=== PATIENT | female | born 1985 | race Caucasian/White ===

== ENCOUNTER 2022-09-22 15:50 | Emergency (ER) | payer OTHER ==
[2022-09-22 16:26] LABS: BASOPHILS % (AUTO) 1 % (0-10); EOSINOPHILS # (AUTO) 0.1 10^3/uL (0.0-0.3); EOSINOPHILS % (AUTO) 2 % (0-10); HEMATOCRIT 36 % (35-52); HEMOGLOBIN 12.4 g/dL (11.5-16.0); LYMPHOCYTES # (AUTO) 2.9 10^3/uL (1.0-4.0); LYMPHOCYTES % (AUTO) 34 % (12-44); MEAN CORPUSCULAR HEMOGLOBIN 31 pg (25-34); MEAN CORPUSCULAR HGB CONC 34 g/dL (32-36); MEAN CORPUSCULAR VOLUME 90 fL (80-99); MEAN PLATELET VOLUME 10.9 fL (9.0-12.2); MONOCYTES # (AUTO) 0.5 10^3/uL (0.0-1.0); MONOCYTES % (AUTO) 6 % (0-12); NEUTROPHILS # (AUTO) 4.8 10^3/uL (1.8-7.8); NEUTROPHILS % (AUTO) 58 % (42-75); PLATELET COUNT 219 10^3/uL (130-400); WHITE BLOOD COUNT 8.3 10^3/uL (4.3-11.0)
--- NOTE | 2022-09-22 16:34 | Diagnostic Imaging Report ---
Indication: Chest pain Portable chest 4:23 PM Heart size and pulmonary vascularity are normal. Lungs are clear. There are no effusions or pneumothoraces. IMPRESSION: No acute abnormalities in the chest Dictated by: Dictated on workstation # [id number]
--- NOTE | 2022-09-22 16:35 | ED Chest Pain ---
General Chief Complaint: Head/Cervical Problems Stated Complaint: L ARM PAIN,CP Nursing Triage Note: PT REPORTS LEFT SIDED NECK PAIN THAT RADIATES DOWN INTO HER LEFT ARM. THE PAIN STARTED LAST NIGHT AT ABOUT 1900. SHE ALSO REPORTS HER CHEST FEELS SORE BUT SHE ALSO JUST STARTED A NEW JOB AT A [employer] SHE STATES. PT WENT TO WORK TODAY. Source: patient, RN/MD Exam Limitations: no limitations History of Present Illness Date Seen by Provider: Sep 22, 2022 Time Seen by Provider: 15:58 Initial Comments 37-year-old female with no pertinent past medical history coming in due to left- sided neck pain rating down to her left arm that started yesterday around 7 PM. Has some chest discomfort associated with it. Went to an urgent care and was referred here. Denies any cardiac history, history of DVT or PE, any surgery recently, any leg swelling or pain, shortness of breath, fever, cough, rash, weakness, numbness, headache, vision changes, or any other concerns. She is currently menstruating. Allergies and Home Medications Allergies Coded Allergies: No Known Drug Allergies (Unverified , 09/22/22) Patient Home Medication List Home Medication List Reviewed: Yes Review of Systems Review of Systems Constitutional: No fever EENTM: No Symptoms Reported Respiratory: No Symptoms Reported Cardiovascular: Chest Pain Gastrointestinal: No Symptoms Reported Genitourinary: No Symptoms Reported Musculoskeletal: see HPI Skin: no symptoms reported Psychiatric/Neurological: No Symptoms Reported Endocrine: No Symptoms Reported Hematologic/Lymphatic: No Symptoms Reported All Other Systems Reviewed Negative Unless Noted: Yes Past Nlsysad-Mcehly-Sexaen Hx Patient Social History Tobacco Use?: No Use of E-Cig and/or Vaping dev: No Substance use?: No Alcohol Use?: No Pt feels they are or have been: No Past Medical History Surgeries: No Physical Exam Vital Signs Vital Signs - First Documented 09/22/22 15:53 Temp 36.2 Pulse 81 Resp 16 B/P (MAP) 129/72 (91) Pulse Ox 100 O2 Delivery Room Air Capillary Refill : Less Than 3 Seconds Height, Weight, BMI Height: '" Weight: lbs. oz. kg; BMI Method: General Appearance: No Apparent Distress, WD/WN HEENT: PERRL/EOMI, Normal ENT Inspection, Pharynx Normal Neck: Full Range of Motion, Normal Inspection, Non Tender, Supple Respiratory: Lungs Clear, Normal Breath Sounds, No Accessory Muscle Use, No Respiratory Distress, Other (Chest tenderness along the anterior portion of her chest which recreates her pain) Cardiovascular: Regular Rate, Rhythm, No Edema, Normal Peripheral Pulses Gastrointestinal: Normal Bowel Sounds, Non Tender, Soft; No Distended, No Guarding Extremity: Normal Capillary Refill, Normal Inspection, Normal Range of Motion, Non Tender, No Calf Tenderness, No Pedal Edema Neurologic/Psychiatric: Alert, No Motor/Sensory Deficits, Normal Mood/Affect Skin: Normal Color, Warm/Dry Lymphatic: No Adenopathy Progress/Results/Core Measures Results/Orders Lab Results Laboratory Tests Test 09/22/22 16:23 Range/Units White Blood Count 8.3 4.3-11.0 10^3/uL Red Blood Count 4.05 3.80-5.11 10^6/uL Hemoglobin 12.4 11.5-16.0 g/dL Hematocrit 36 35-52 % Mean Corpuscular Volume 90 80-99 fL Mean Corpuscular Hemoglobin 31 25-34 pg Mean Corpuscular Hemoglobin Concent 34 32-36 g/dL Red Cell Distribution Width 13.3 10.0-14.5 % Platelet Count 219 130-400 10^3/uL Mean Platelet Volume 10.9 9.0-12.2 fL Immature Granulocyte % (Auto) 0 % Neutrophils (%) (Auto) 58 42-75 % Lymphocytes (%) (Auto) 34 12-44 % Monocytes (%) (Auto) 6 0-12 % Eosinophils (%) (Auto) 2 0-10 % Basophils (%) (Auto) 1 0-10 % Neutrophils # (Auto) 4.8 1.8-7.8 10^3/uL Lymphocytes # (Auto) 2.9 1.0-4.0 10^3/uL Monocytes # (Auto) 0.5 0.0-1.0 10^3/uL Eosinophils # (Auto) 0.1 0.0-0.3 10^3/uL Basophils # (Auto) 0.0 0.0-0.1 10^3/uL Immature Granulocyte # (Auto) 0.0 0.0-0.1 10^3/uL Sodium Level 140 135-145 MMOL/L Potassium Level 3.8 3.6-5.0 MMOL/L Chloride Level 104 98-107 MMOL/L Carbon Dioxide Level 26 21-32 MMOL/L Anion Gap 10 5-14 MMOL/L Blood Urea Nitrogen 13 7-18 MG/DL Creatinine 0.85 0.60-1.30 MG/DL Estimat Glomerular Filtration Rate 90 BUN/Creatinine Ratio 15 Glucose Level 93 70-105 MG/DL Calcium Level 9.1 8.5-10.1 MG/DL Corrected Calcium 9.1 8.5-10.1 MG/DL Magnesium Level 2.1 1.6-2.4 MG/DL Total Bilirubin 0.2 0.1-1.0 MG/DL Aspartate Amino Transf (AST/SGOT) 12 5-34 U/L Alanine Aminotransferase (ALT/SGPT) 9 0-55 U/L Alkaline Phosphatase 70 40-136 U/L Troponin I < 0.30 <0.30 NG/ML Total Protein 7.0 6.4-8.2 GM/DL Albumin 4.0 3.2-4.5 GM/DL Lipase 26 8-78 U/L My Orders Orders - JUWAN CLARK MD Cbc With Automated Diff (09/22/22 16:14) Magnesium (09/22/22 16:14) Chest 1 View Ap/Pa Only (09/22/22 16:14) Ekg Tracing (09/22/22 16:14) Comprehensive Metabolic Panel (09/22/22 16:14) O2 (09/22/22 16:14) Monitor-Rhythm Ecg Trace Only (09/22/22 16:14) Ed Iv/Invasive Line Start (09/22/22 16:14) Lipase (09/22/22 16:14) Troponin I Fs (09/22/22 16:14) Ketorolac Injection (Toradol Injection) (09/22/22 16:45) Medications Given in ED Current Medications Medications Dose Ordered Sig/Trang Route Start Time Stop Time Status Last Admin Dose Admin Ketorolac Tromethamine 15 mg ONCE ONCE IVP 09/22/22 16:45 09/22/22 16:46 DC 09/22/22 16:39 15 MG Vital Signs/I&O 09/22/22 15:53 Temp 36.2 Pulse 81 Resp 16 B/P (MAP) 129/72 (91) Pulse Ox 100 O2 Delivery Room Air Blood Pressure Mean: 91 Progress Progress Note : Progress Note 29-year-old female with above history coming in due to left-sided neck pain going to the left arm and chest wall discomfort. ABCs were intact and vitals were stable on presentation. Physical exam reassuring including musculoskeletal tenderness that recreates her pain. EKG with no acute ischemic changes. An IV was placed and basic labs were obtained including cardiac biomarkers. These were essentially unremarkable including a negative troponin. Chest x-ray with no acute abnormalities. Patient was given Toradol for pain control. Seems musculoskeletal in nature at this time, and I will have her follow-up with her PCP as an outpatient. Initial ECG Impression Date: Sep 22, 2022 Initial ECG Impression Time: 16:43 Initial ECG Rate: 66 Initial ECG Rhythm: Normal Sinus Comment Narrow QRS, normal axis, no significant ST changes or T wave abnormalities Diagnostic Imaging Diagonstic Imaging: Xray Plain Films/CT/US/NM/MRI: chest Comments Narrow QRS, normal axis, no significant ST changes or T wave abnormalities Departure Impression Primary Impression: Chest wall pain Additional Impression: Neck muscle strain Qualified Codes: S16.1XXA - Strain of muscle, fascia and tendon at neck level, initial encounter Disposition: 01 HOME, SELF-CARE Condition: Stable Departure-Patient Inst. Decision time for Depature: 16:54 Referrals: NO,LOCAL PHYSICIAN (PCP/Family) Primary Care Physician Patient Instructions: Chest Pain That Is Not Caused by the Heart (DC), Neck Sprain (DC) Add. Discharge Instructions: Fortunately it does not appear like you are having any life-threatening events happen at this time. This seems to us to be musculoskeletal in nature, and we recommend taking ibuprofen 600 mg every 6 hours as needed for pain. You can also try things such as a heating pad. A muscle relaxer was sent to your pharmacy to try as well. It likely will take a week or so to improve Scripts Cyclobenzaprine HCl (Cyclobenzaprine HCl) 10 Mg Tablet 10 MG PO Q8H PRN for SPASMS for 5 Days, #15 TAB 0 Refills Prov: JUWAN CLARK MD 09/22/22 Work/School Note: Work Release Form Date Seen in the Emergency Department: Sep 22, 2022 Return to Work: Sep 23, 2022 Restrictions: No Restrictions JUWAN CLARK MD Sep 22, 2022 16:35
[2022-09-22] MEDS ORDERED: KETOROLAC 30 MG/ML VIAL IVP ONE (16:45)
[2022-09-22 16:50] LABS: BILIRUBIN,TOTAL 0.2 MG/DL (0.1-1.0); CALCIUM 9.1 MG/DL (8.5-10.1); CREATININE SERUM 0.85 MG/DL (0.60-1.30); MAGNESIUM 2.1 MG/DL (1.6-2.4); POTASSIUM 3.8 MMOL/L (3.6-5.0)
[2022-09-22 16:57] VITALS: BP 119/79
[2022-09-22] MEDS ORDERED: CYCL10TA25 PO (16:57)
== END 2022-09-22 16:58 | disposition home or self-care (01) ==
LOC: ER FS 15:52
DX: R07.89 Other chest pain (principal); S16.1XXA Strain of muscle, fascia and tendon at neck level, initial encounter; Z28.310 Unvaccinated for COVID-19; X58.XXXA Exposure to other specified factors, initial encounter
CPT/HCPCS: 36415; 71045; 80053; 83690; 83735; 84484; 84703; 85025; 93005; 93041

== ENCOUNTER → 2023-09-11 | Outpatient (CLI) | payer OTHER ==
[~2023-09-11] MED LIST: CYCL10TA25 PO; GADOTERATE 0.5 MMOL/ML (CLARISCAN) 20 ML VIAL IV ONE; IBUP-1780 PO
--- NOTE | 2023-09-11 10:19 | Diagnostic Imaging Report ---
PROCEDURE: MR imaging of the brain with and without contrast. TECHNIQUE: Multiplanar, multisequence MR imaging of the brain was performed with and without contrast. INDICATION: Fall 3 months ago. Persistent headaches. COMPARISON: None. FINDINGS: No acute ischemia, mass, or hemorrhage. No abnormal enhancement. No focal signal abnormalities. The ventricles, cortical sulci, and basilar cisterns are symmetric and unremarkable. The sellar and suprasellar regions have a normal appearance. The brainstem and posterior fossa are unremarkable. The paranasal sinuses and mastoid air cells demonstrate normal signal characteristics. The globes and orbits are symmetric and unremarkable. The scalp and calvarium have a normal appearance. IMPRESSION: No acute ischemia, mass, or hemorrhage. No abnormal enhancement. No focal signal abnormalities. Dictated by: Dictated on workstation # [id number]
== END ==
LOC: RAD 09:15
PROVIDERS: ATTEND Student in an Organized Health Care Education/Training Program
DX: S06.0X0D Concussion without loss of consciousness, subsequent encounter (principal); G44.201 Tension-type headache, unspecified, intractable
CPT/HCPCS: 70553